=== PATIENT | female | born 1985 | race Caucasian/White ===

== ENCOUNTER → 2021-12-19 14:45 | Outpatient (CLI) | payer OTHER, SELFPAY ==
[2021-12-19 15:31] LABS: COVID19 -Nasal RAPID Negative (Negative)
== END ==
PROVIDERS: Visit Provider Internal Medicine Gastroenterology
DX: Z20.822 Contact with and (suspected) exposure to COVID-19 (principal); Z01.812 Encounter for preprocedural laboratory examination
CPT/HCPCS: 87635; C9803

== ENCOUNTER 2021-12-22 12:13 | Day surgery (SDC) | payer OTHER, SELFPAY ==
--- NOTE | 2021-12-22 | PATH_ITS ---
[facility] Accession Number: [id number] . 01 Material submitted: . colon - RANDOM COLON . 01 Diagnosis: Random Colon, Biopsies: Colonic mucosa with no diagnostic abnormality. Negative for active, chronic, and microscopic colitis. Negative for dysplasia and malignancy. . MRV 12/24/2021 1331 Local . 01 Electronically signed: . Zaria Gallardo MD, Pathologist NPI- [id number] . 01 Gross description: . RANDOM COLON: Received in formalin are 2 fragment(s) of salcedo, soft tissue measuring 0.3 x 0.1 x 0.1 cm to 0.2 x 0.1 x 0.1 cm submitted entirely in 1 cassette(s) /CPE 12/23/2021 0555 Local . 01 Pathologist provided ICD-10: R19.7 . 01 CPT . 333779 Specimen Comment: A courtesy copy of this report has been sent to [phone] Performed at: 01 [facility] [address] [place] [address], [place], [place] [id number] MD Eleazar Chaney MD Phone: [phone]
[2021-12-22] MEDS: SODIUM CHLORIDE 0.9% 1,000 ML 100 ML IV (12:30)
--- NOTE | 2021-12-22 12:41 | PM.HP.1 ---
History of Present Illness History of Present Illness Date Patient Seen: 12/22/21 Time Patient Seen: 12:41 Chief complaint: SDC Narrative: I reviewed the recent clinic note by Dr. Jeffries. No significant changes. Patient History Medical History Chicken pox (~1989) Pancreatitis (~2016) Surgical History Anesthesia [place] teeth removed (~2003) Family & Social History Family History Father Cardiac arrest History of coronary artery bypass graft History of heart disease Hyperlipidemia Hypertension Grandfather Cancer Grandmother Diabetes mellitus Hypertension Stroke Grandfather Cancer History of heart disease Grandmother History of emphysema Tobacco & Substance use: Smoking Status Former smoker Meds Home Medications and Allergies Home Medications Medication Instructions Recorded Confirmed Type No Known Home Medications 12/22/21 12/22/21 History Allergies Allergy/AdvReac Type Severity Reaction Status Date / Time levaquin AdvReac Unknown peripheral Uncoded 12/22/21 12:40 neuropathy Review of Systems Review of Systems ROS: Yes All systems reviewed with the patient and are negative except as otherwise documented Exam Const General: cooperative HENMT Head: normal to inspection Eyes General: appearance normal, both eyes and all related structures Neck Neck: normal visual inspection Chest Chest: normal inspection of the chest Resp Effort & Inspection: normal respiratory effort Cardio Rate: regular rate GI Inspection: normal to inspection Skin General: no rashes or lesions noted Neuro General: patient alert and patient awake Assessment & Plan Assessment & Plan narrative: 36-year-old female with rectal bleeding x2 years. Colonoscopy is pursued for exclusion of IBD. Time Spent With Patient Critical Care time: I spent a total of [] minutes of critical care time on this patient's care today; this time is exclusive of procedural time.
[2021-12-22 12:42] VITALS: BP 128/70; PULSE 80; RESP 14; TEMP 36.2; O2SAT 100; BMI 24.2
--- NOTE | 2021-12-22 12:43 | PM.PREOP ---
Pre-operative Note COVID-19 COVID-19 status: Negative Result date/Date tested (Pos, Neg/Pending): 12/19/21 Criteria for continued procedure: Possibility delay results in more complex future surgery or treatment Interval Note History & Physical reviewed/Exam performed by Physician: Yes Changes to H&P: No ASA Class (for procedural sedation): I
--- NOTE | 2021-12-22 13:19 | PM.OP.COLON ---
Operative Date/Time/Diagnoses Date of procedure: 12/22/21 Time of procedure: 13:20 Pre-op diagnosis: Intermittent rectal bleeding. Altered bowel habit Post-op diagnosis: same Procedure & Clinicians Study performed: Colonoscopy with random biopsies Same procedure as scheduled: Yes Indications: Rectal bleeding altered bowel habit Surgeon: Michael Marvin Procedure Notes SCOAP/Timeout: Done Procedure in detail: After the risks and benefits were explained, written and verbal informed consent was obtained. The patient was brought into the procedure room and placed into the left lateral decubitus position. Please see nurse parts counter representative notes for sedation details. Digital rectal examination was accomplished. The scope was introduced into the patient and advanced under direct visualization to the cecum as identified by the appendiceal orifice and ileocecal valve. The scope was slowly withdrawn to carefully examine the mucosa for any defects or lesions. Comprehensive imaging was accomplished throughout the rectum including the dentate line. The colon was decompressed, the scope was then removed from the patient who tolerated the procedure well. Pediatric colonoscope Bowel prep adequate Scope withdrawal time: 12 minutes Sedation minutes: 18 Complications: none Impression: The terminal ileum was interrogated and appeared visually normal. There was no evidence of any proctitis. No evidence of colitis. Random colon biopsies were taken for exclusion of microscopic colitis. Patient had a slightly tortuous colon. On direct views of the anal rectum there was evidence of grade 1 internal hemorrhoids with hypertrophied anal papillae Endoscopic diagnosis 1. Grade 1 hemorrhoids with hypertrophied anal papillae 2. Slightly tortuous navigation 3. Otherwise visually unremarkable colonoscopy and terminal ileoscopy Post-procedure Plan for aftercare: 1. Await histopathology. 2. Repeat colonoscopy 10 years time for colon cancer screening. Disposition: PACU
[2021-12-22 13:22] VITALS: BP 103/52; PULSE 54; RESP 15; TEMP 36.8; O2SAT 100
[2021-12-22 13:26] VITALS: BP 108/59; PULSE 51; RESP 14; O2SAT 100
[2021-12-22 13:32] VITALS: BP 117/67; PULSE 60; RESP 18; O2SAT 100
[2021-12-22 13:37] VITALS: BP 126/72; PULSE 53; RESP 18; TEMP 36.7; O2SAT 100
== END 2021-12-22 13:49 | disposition home or self-care (01) ==
PROVIDERS: Referring Provider Internal Medicine Gastroenterology; Visit Provider Internal Medicine Gastroenterology
PROC: 0DJD8ZZ Inspection of Lower Intestinal Tract, Via Natural or Artificial Opening Endoscopic (ICD-10-PCS; CPT 45378; principal; 2021-12-22 13:30)
DX: K62.5 Hemorrhage of anus and rectum (principal); K64.0 First degree hemorrhoids; K64.4 Residual hemorrhoidal skin tags
CPT/HCPCS: 45380; J2704

== ENCOUNTER → 2022-01-22 16:36 | Outpatient (CLI) | payer OTHER, SELFPAY ==
[2022-01-22 19:30] LABS: COVID19 -Nasal RAPID Negative (Negative)
== END ==
PROVIDERS: Visit Provider Obstetrics & Gynecology
DX: Z01.812 Encounter for preprocedural laboratory examination (principal); Z20.822 Contact with and (suspected) exposure to COVID-19
CPT/HCPCS: 87635

== ENCOUNTER 2022-01-23 08:14 | Day surgery (SDC) | payer OTHER, SELFPAY ==
[2022-01-22 08:13] VITALS: BMI 25.2
[2022-01-23] VITALS (7 sets, daily range): BP systolic 105–144; BP diastolic 61–85; PULSE 51–66; RESP 12–22; TEMP 36.1–36.3; O2SAT 99–100; BMI 25.2
--- NOTE | 2022-01-23 | PATH_ITS ---
[facility] Accession Number: [id number] . 01 Material submitted: . PART A: cervix - LEEP CONE CUT AT 1200 PART B: endocervix - ENDOCERVICAL CURETTING . 01 Diagnosis: A. Uterine Cervix, LEEP Cone Excision: High-grade squamous intraepithelial lesion (moderate to severe dysplasia/JE 2-3). Negative for glandular dysplasia and invasive malignancy. High-grade squamous intraepithelial lesion focally identified at ectocervical margin of excision; remaining margins appear clear. . B. Endocervix, Curettage: Benign endocervical epithelium; negative for dysplasia. Scant endometrial tissue. [facility] 01/28/2022 1337 Local . 01 Electronically signed: . Rosalina Portillo MD, Pathologist NPI- [id number] . 01 Gross description: . A. Received in formalin, labeled with the patient's name and designated 1. LEEP cone cut at 1200, is a 2.0 x 1.7 cm previously opened cervical cone, excised to a depth up to 0.6 cm, cut at 12 o'clock. The specimen is inked as follows: Endocervical margin - yellow, remaining ectocervical margin - blue. The ectocervical mucosa is pale salcedo and smooth with no discrete lesions identified. The specimen is radially sectioned and entirely submitted as follows: A1: 12-3 o'clock. A2: 3-6 o'clock. A3: 6-9 o'clock. A4: 9-12 o'clock. B. Received in formalin, labeled with the patient's name and designated 2. Endocervical curetting, is a 1.0 x 0.7 x 0.2 cm aggregate of red salcedo tissue and mucohemorrhagic debris, entirely submitted in cassette B1. ([id number]) /FRR 01/24/2022 1720 Local . 01 Pathologist provided ICD-10: D06.9 . 01 CPT . 077645, [id number] Specimen Comment: A courtesy copy of this report has been sent to [phone] Performed at: 01 [facility] [address] [place] [address] [address] [facility], [place], [place] [id number] MD Eleazar Chaney MD Phone: [phone]
--- NOTE | 2022-01-23 07:08 | P.HPOB_ITS ---
History of Present Illness History of Present Illness Reason for admission: other (High-grade squamous dysplasia of the cervix) Narrative: Hector is a 36 yo G0 who presented in referral from her primary care provider for colposcopy due to a Pap performed 11/03/2021 which showed atypical squamous cells, cannot exclude HSIL (ASC-H).? Patient's past history is notable for an abnormal Pap at age 16 for which she underwent colposcopy and subsequent LEEP at age 17.? Since then her Paps have all been normal up until her most recent Pap performed in October.? Colposcopy performed 11/28/2021 showed areas of dense aceto-white epithelium of the transition zone which on biopsy were consistent w ith CIN2 and the ECC showed avulsed fragments of squamous epithelium which also demonstrated CIN2. After discussion of all options, the patient is proceeding with loop electrical excision procedure (LEEP) in the [facility] on January 23, 2022. She presents today for her scheduled surgery. [facility] Medical History Chicken pox (~1989) Pancreatitis (~2016) Surgical History Anesthesia Hx of colonoscopy (12/22/21) Hx of colposcopy with cervical biopsy (11/28/21) [place] teeth removed (~2003) Family History Father Cardiac arrest History of coronary artery bypass graft History of heart disease Hyperlipidemia Hypertension Grandfather Cancer Grandmother Diabetes mellitus Hypertension Stroke Grandfather Cancer History of heart disease Grandmother History of emphysema Social History household members: significant other Smoking Status: Former smoker alcohol intake: current Meds Home Medications and Allergies Home Medications Medication Instructions Recorded Confirmed Type No Known Home Medications 12/22/21 01/22/22 History Allergies Allergy/AdvReac Type Severity Reaction Status Date / Time levofloxacin AdvReac Unknown peripheral Verified 12/22/21 13:55 neuropathy Review of Systems Review of Systems Narrative: Problem-specific ROS positives included in HPI Exam Const General: cooperative and comfortable Nutritional Appearance: average body habitus Orientation: alert and oriented x3 HENMT Head: normal to inspection, atraumatic and abrasion Ears: hearing grossly normal bilaterally Face and sinus: face symmetric Eyes General: appearance normal, both eyes and all related structures Conjunctivae: conjunctivae normal Sclera: sclerae normal EOM: EOM intact bilaterally Neck Neck: normal visual inspection Resp Effort & Inspection: normal respiratory effort and able to speak in complete sentences Auscultation: clear to auscultation bilaterally Cardio Rate: regular rate Rhythm: regular rhythm Heart Sounds: S1 normal, S2 normal and no murmurs GI Inspection: normal to inspection Palpation: soft and no hepatosplenomegaly External Female Exam: other (Deferred; see colposcopy visit note) Extrem General: no calf tenderness Psych Appearance: grossly normal Mental Status: mental status grossly normal Speech and Movement: speech and movement normal Mood: congruent mood Affect: normal affect Attitude: cooperative Thought Process: normal Thought Content: normal Judgment: judgment good Assessment & Plan Assessment and plan (1) High grade squamous intraepithelial cervical dysplasia: Status: Acute Assessment & Plan narrative: Patient counseled regarding alternatives, risks, benefits, and potential complications associated with loop electrosurgical excision procedure (LEEP). With full understanding of the above, a written consent was executed, signed, a nd witnessed this date. COVID-19 COVID-19 status: Negative Result date/Date tested (Pos, Neg/Pending): 01/22/22 Time Spent With Patient Critical Care time: I spent a total of [] minutes of critical care time on this patient's care today; this time is exclusive of procedural time.
[2022-01-23] MEDS: LACTATED RINGERS 1,000 ML 42 ML IV (08:45)
--- NOTE | 2022-01-23 09:44 | PM.PREOP ---
Pre-operative Note COVID-19 COVID-19 status: Negative Result date/Date tested (Pos, Neg/Pending): 01/23/22 Criteria for continued procedure: Non-surgical alternatives not available or appropriate per current SOC Interval Note History & Physical reviewed/Exam performed by Physician: Yes Changes to H&P: No
[2022-01-23] MEDS: ACETIC ACID 500 ML IRRIG 20 ML TOP (10:04)
--- NOTE | 2022-01-23 10:21 | PM.GYNOP.1 ---
Operative Date/Time/Diagnoses Date of procedure: 01/23/22 Time of procedure: 09:55 Pre-op diagnosis: High-grade intraepithelial dysplasia of the cervix Post-op diagnosis: same Procedure & Clinicians Procedure: Procedures Operation Date: 01/23/22 09:45 Actual Procedure Side Surgeon p LEEP Procedure Sin Phelps MD Indications: Hector is a 36 yo G0 who presented in referral from her primary care provider for colposcopy due to a Pap performed 11/03/2021 which showed atypical squamous cells, cannot exclude HSIL (ASC-H).? Patient's past history is notable for an abnormal Pap at age 16 for which she underwent colposcopy and subsequent LEEP at age 17.? Since then her Paps have all been normal up until her most recent Pap performed in October.? Colposcopy performed 11/28/2021 showed areas of dense aceto-white epithelium of the transition zone which on biopsy were consistent with CIN2 and the ECC showed avulsed fragments of squamous epithelium which also demonstrated CIN2.? After discussion of all options, the patient is proceeding with loop electrical excision procedure (LEEP) in the main OR of [facility] on January 23, 2022.? She presents today for her scheduled surgery. Surgeon: Sin Phelps Anesthesia Type: General Operative Notes Findings: Localized areas of dense aceto-white epithelium at 3 and 9:00 a.m. on the cervix. No significant aceto-white changes on the portio of the cervix. Scant ECC obtained following LEEP. Closure Type: not applicable Specimen(s): other (LEEP cone, cut at 12:00; endocervical curettings) Estimated blood loss (mL): 20 Blood products transfused: none Procedure in detail: With the patient under satisfactory general anesthesia in the modified dorsal lithotomy position, perineum was prepped with Betadine and the patient draped and preparation for LEEP. A pre-surgical safety time-out was taken in accordance with [facility] protocols. A bivalve LEEP speculum was inserted in the vagina and the cervix easily visualized. Vinegar solution was poured into the vaginal canal and areas of aceto-white epithelium identified. Using a 10 mm x 15 mm loop electrode and 50 w pure cut power, a LEEP cone was obtained and cut at 12:00 in preparation for submission in formalin for pathologic examination. ECC obtained with a Kevorkian box curette and submitted as a separate pathologic specimen. Electrocautery with the ball cautery at 50 w coag was used to render the bed completely hemostatic. Once complete hemostasis was assured, the speculum was removed from the vagina and the procedure terminated. The patient was awakened and transferred to the PACU after having tolerated procedure well. Complications: none Post-operative Condition: stable Disposition: PACU Plan for aftercare: Routine postoperative care. Follow-up will be in 2 weeks for review of LEEP cone specimen results.
== END 2022-01-23 10:55 | disposition home or self-care (01) ==
PROVIDERS: Referring Provider Obstetrics & Gynecology; Visit Provider Obstetrics & Gynecology
PROC: 0UBC7ZZ Excision of Cervix, Via Natural or Artificial Opening (ICD-10-PCS; CPT 57522; principal; 2022-01-23 09:45)
DX: D06.7 Carcinoma in situ of other parts of cervix (principal); Z87.891 Personal history of nicotine dependence
CPT/HCPCS: 57460; J1100; J1885; J2250; J2405; J2704; J3010

== ENCOUNTER → 2023-01-04 14:18 | Outpatient (CLI) | payer OTHER, SELFPAY ==
[2023-01-07 16:51] LABS: Calprotectin, Stool 6040 ug/g (0-120)
== END ==
PROVIDERS: PCP Nurse Practitioner Family; Referring Provider Physician Assistant; Visit Provider Physician Assistant
DX: R19.7 Diarrhea, unspecified (principal)
CPT/HCPCS: 83993